=== PATIENT | female | born 1980 | race Caucasian/White ===

== ENCOUNTER → 2016-03-01 | Outpatient (CLI) | payer OTHER ==
[2016-03-01 12:59] LABS: MEAN CORPUSCULAR HEMOGLOBIN 31.2 pg (27.0-33.0); MEAN CORPUSCULAR HGB CONC 33.9 g/dl (32.0-36.5); MEAN CORPUSCULAR VOLUME 92.3 fl (80.0-96.0); RED CELL DISTRIBUTION WIDTH 12.6 % (11.5-14.5); WHITE BLOOD COUNT 6.8 K/mm3 (4.0-10.0)
[2016-03-01 13:37] LABS: ALBUMIN/GLOBULIN RATIO 1.33 (1.00-1.93); ALKALINE PHOSPHATASE 60 U/L (45-117); ALT/SGPT 39 U/L (12-78); ANION GAP 7 MEQ/L (8-16); AST/SGOT 23 U/L (15-37); BILIRUBIN,TOTAL 0.4 MG/DL (0.2-1.0); BLOOD UREA NITROGEN 11 MG/DL (7-18); CALCIUM LEVEL 9.2 MG/DL (8.5-10.1); CARBON DIOXIDE LEVEL 27 MEQ/L (21-32); CHLORIDE LEVEL 105 MEQ/L (98-107); CHOLESTEROL LEVEL 207 MG/DL (<200); CREATININE FOR GFR 0.74 MG/DL (0.55-1.02); GLOMERULAR FILTRATION RATE > 60.0 (>60); GLUCOSE, FASTING 83 MG/DL (70-105); POTASSIUM SERUM 4.7 MEQ/L (3.5-5.1); SODIUM LEVEL 139 MEQ/L (136-145); TRIGLYCERIDES LEVEL 302 MG/DL (<150)
[2016-03-01 15:15] LABS: CORTISOL AM 10.8 UG/DL (4.3-22.4)
== END ==
LOC: M WUC 09:00
PROVIDERS: ATTEND Nurse Practitioner Family
DX: K58.0 Irritable bowel syndrome with diarrhea (principal); E03.9 Hypothyroidism, unspecified; E78.00 Pure hypercholesterolemia, unspecified

== ENCOUNTER → 2016-04-25 | Outpatient (REF) | payer OTHER | LOC: M LAB REF 13:26 | PROVIDERS: ATTEND Advanced Practice Midwife | DX: Z12.4 Encounter for screening for malignant neoplasm of cervix (principal); R87.610 Atypical squamous cells of undetermined significance on cytologic smear of cervix (ASC-US) ==

== ENCOUNTER → 2016-06-12 | Outpatient (CLI) | payer OTHER ==
[2016-06-12 13:35] LABS: ALBUMIN 3.9 GM/DL (3.2-5.2); ALBUMIN/GLOBULIN RATIO 1.18 (1.00-1.93); BILIRUBIN,DIRECT 0.1 MG/DL (0.0-0.2); BILIRUBIN,TOTAL 0.4 MG/DL (0.2-1.0); TOTAL PROTEIN 7.2 GM/DL (6.4-8.2)
== END ==
LOC: M WUC 09:38
PROVIDERS: ATTEND Nurse Practitioner Family
DX: E78.00 Pure hypercholesterolemia, unspecified (principal)

== ENCOUNTER → 2016-10-30 | Outpatient (CLI) | payer OTHER ==
[2016-10-30 10:09] LABS: MEAN CORPUSCULAR HEMOGLOBIN 31.8 pg (27.0-33.0); MEAN CORPUSCULAR HGB CONC 34.5 g/dl (32.0-36.5); MEAN CORPUSCULAR VOLUME 92.2 fl (80.0-96.0); RED CELL DISTRIBUTION WIDTH 12.5 % (11.5-14.5); WHITE BLOOD COUNT 6.3 K/mm3 (4.0-10.0)
[2016-11-03 00:07] LABS: RENIN LEVEL 0.983 ng/mL/hr (0.167-5.380)
== END ==
LOC: M WUC 08:56
PROVIDERS: ATTEND Nurse Practitioner Family
DX: E03.9 Hypothyroidism, unspecified (principal); R53.83 Other fatigue; E78.00 Pure hypercholesterolemia, unspecified

== ENCOUNTER → 2016-12-13 | Outpatient (REF) | payer OTHER | LOC: M LAB REF 13:16 | PROVIDERS: ATTEND Advanced Practice Midwife | DX: B37.3 Candidiasis of vulva and vagina (principal) ==

== ENCOUNTER → 2017-09-02 | Outpatient (CLI) | payer OTHER ==
[2017-09-02 13:10] LABS: HEMATOCRIT 43.3 % (36.0-47.0); MEAN CORPUSCULAR HEMOGLOBIN 30.8 pg (27.0-33.0); MEAN CORPUSCULAR HGB CONC 34.6 g/dl (32.0-36.5); MEAN CORPUSCULAR VOLUME 88.9 fl (80.0-96.0); PLATELET COUNT, AUTOMATED 284 10^3/uL (150-450); RED BLOOD COUNT 4.87 10^6/uL (4.00-5.40); RED CELL DISTRIBUTION WIDTH 12.4 % (11.5-14.5)
[2017-09-02 13:39] LABS: ALBUMIN 3.9 GM/DL (3.2-5.2); ALBUMIN/GLOBULIN RATIO 1.18 (1.00-1.93); ALKALINE PHOSPHATASE 63 U/L (45-117); ALT/SGPT 69 U/L (12-78); ANION GAP 7 MEQ/L (8-16); AST/SGOT 42 U/L (7-37); BILIRUBIN,TOTAL 0.9 MG/DL (0.2-1.0); BLOOD UREA NITROGEN 6 MG/DL (7-18); CALCIUM LEVEL 8.9 MG/DL (8.5-10.1); CARBON DIOXIDE LEVEL 26 MEQ/L (21-32); CHLORIDE LEVEL 104 MEQ/L (98-107); CHOLESTEROL LEVEL 201 MG/DL (<200); CHOLESTEROL RISK RATIO 2.337 (<5); GLOMERULAR FILTRATION RATE > 60.0 (>60); GLUCOSE, FASTING 78 MG/DL (70-100); HDL CHOLESTEROL 86 MG/DL (>40); LDL CHOLESTEROL 88.8 MG/DL (<100); NON-HDL-C 115 MG/DL; POTASSIUM SERUM 4.4 MEQ/L (3.5-5.1); SODIUM LEVEL 137 MEQ/L (136-145); THYROID STIMULATING HORMONE 0.794 uIU/ML (0.358-3.740); TOTAL PROTEIN 7.2 GM/DL (6.4-8.2); TRIGLYCERIDES LEVEL 131 MG/DL (<150)
[2017-09-02 15:02] LABS: TOTAL 25(OH) VITAMIN D 45.4 NG/ML (30.0-100.0)
== END ==
LOC: M WUC 11:30
DX: K21.9 Gastro-esophageal reflux disease without esophagitis (principal); E78.00 Pure hypercholesterolemia, unspecified; E03.9 Hypothyroidism, unspecified; E55.9 Vitamin D deficiency, unspecified
CPT/HCPCS: 84443

== ENCOUNTER → 2017-10-10 | Outpatient (REF) | payer OTHER, MEDICAID ==
[2017-10-12 14:50] LABS: HPV HYBRID CAPTURE II Negative (Negative)
== END ==
LOC: M LAB REF 14:51
DX: Z12.4 Encounter for screening for malignant neoplasm of cervix (principal)

== ENCOUNTER → 2017-11-11 | Outpatient (REF) | payer OTHER, MEDICAID | LOC: M LAB REF 13:49 | DX: R87.612 Low grade squamous intraepithelial lesion on cytologic smear of cervix (LGSIL) (principal) ==

== ENCOUNTER → 2018-04-15 | Outpatient (CLI) | payer OTHER, MEDICAID ==
[2018-04-15 10:55] LABS: HCG, SERUM QUALITATIVE NEGATIVE (NEGATIVE)
[2018-04-15 11:15] LABS: FREE T4 1.12 NG/DL (0.76-1.46)
== END ==
LOC: M SMT 08:28
PROVIDERS: ATTEND Advanced Practice Midwife
DX: N92.6 Irregular menstruation, unspecified (principal)

== ENCOUNTER 2018-06-16 06:57 | Day surgery (SDC) | payer OTHER ==
[2018-06-16] VITALS (9 sets, daily range): BP systolic 103–134; BP diastolic 64–94
[~2018-06-16] VITALS: Ht 162.6 cm; Wt 68.7 kg
[~2018-06-16 06:57] MED LIST: LEVO112T2 PO; LR 1,000 ML IV ONE; VITA1CAP25 PO
[2018-06-16 07:27] LABS: HEMATOCRIT 46.5 % (36.0-47.0); HEMOGLOBIN 15.7 g/dl (12.0-15.5); MEAN CORPUSCULAR HEMOGLOBIN 30.3 pg (27.0-33.0); MEAN CORPUSCULAR HGB CONC 33.8 g/dl (32.0-36.5); MEAN CORPUSCULAR VOLUME 89.8 fl (80.0-96.0); PLATELET COUNT, AUTOMATED 278 10^3/uL (150-450); RED BLOOD COUNT 5.18 10^6/uL (4.00-5.40)
[2018-06-16] MEDS ORDERED: ROCURONIUM BROMIDE 50 MG/5 ML VIAL As Ordered ONE (07:35)
[2018-06-16] MEDS ORDERED: dexameTHASONE 4 MG/ML 1ML VIAL (J1100) As Ordered ONE (07:35)
[2018-06-16] MEDS ORDERED: ONDANSETRON 4MG/2ML VIAL (J2405) As Ordered ONE ×2 (07:35→07:36)
[2018-06-16] MEDS ORDERED: PROPOFOL 200 MG/20 ML VIAL As Ordered ONE ×2 (07:35→10:21)
[2018-06-16] MEDS ORDERED: LIDOCAINE 2% INJ 100 MG/5 ML SDV (FOR ANES.) As Ordered ONE (07:35)
[2018-06-16] MEDS ORDERED: KETOROLAC 60 MG/2 ML VIAL (J1885) As Ordered ONE (07:36)
[2018-06-16] MEDS ORDERED: ACETAMINOPHEN 1000MG 100ML IV BTL (OFIRMEV) (J0131 PER 10MG) As Ordered ONE (07:36)
[2018-06-16] MEDS ORDERED: METOCLOPRAMIDE INJ 10MG/2ML VIAL (J2765) As Ordered ONE (07:37)
[2018-06-16] MEDS ORDERED: HYDROmorphone HCL 2 MG/ML 1ML VIAL (J1170) As Ordered ONE (07:41)
[2018-06-16] MEDS ORDERED: MIDAZOLAM INJ 2 MG/2 ML VIAL (J2250) As Ordered ONE (07:41)
[2018-06-16] MEDS ORDERED: fentaNYL 100 MCG/2 ML INJECTION (J3010) As Ordered ONE ×2 (07:41→10:34)
[2018-06-16 07:56] LABS: HCG, SERUM QUALITATIVE NEGATIVE (NEGATIVE)
[2018-06-16] MEDS ORDERED: OXYC1TAB23 PO (08:05)
[2018-06-16] MEDS ORDERED: METHYLENE BLUE 0.5% (5MG/ML) 10 ML AMP (PROVAYBLUE)(Q9968 PER 1MG) As Ordered ONE (08:10)
[2018-06-16] MEDS ORDERED: BUPIVACAINE HCL 0.25% 10 ML VIAL As Ordered ONE (08:10)
[2018-06-16] MEDS ORDERED: ceFAZolin 2 GM/D5W 50 ML IV BAG (J0690 PER 500MG) As Ordered ONE (08:56)
[2018-06-16] MEDS ORDERED: GLYCOPYRROLATE INJ 0.2 MG/ML 2 ML VIAL As Ordered ONE (09:10)
[2018-06-16] MEDS ORDERED: ePHEDrine SULFATE 25 MG/5 ML(5MG/ML) SYRINGE As Ordered ONE (09:46)
[2018-06-16] MEDS ORDERED: SUGAMMADEX SODIUM 500 MG/5 ML VIAL (BRIDION) As Ordered ONE (10:43)
[2018-06-16] MEDS ORDERED: ONDANSETRON 4MG/2ML VIAL (J2405) IV PRN (11:30)
[2018-06-16] MEDS ORDERED: METOCLOPRAMIDE INJ 10MG/2ML VIAL (J2765) IV PRN (11:30)
[2018-06-16] MEDS ORDERED: LR 1,000 ML IV SCH (11:30)
[2018-06-16] MEDS ORDERED: fentaNYL 100 MCG/2 ML INJECTION (J3010) IV PRN (11:30)
[2018-06-16 11:39] LABS: BLOOD UREA NITROGEN 9 MG/DL (7-18); CALCIUM LEVEL 8.8 MG/DL (8.5-10.1); CARBON DIOXIDE LEVEL 23 MEQ/L (21-32); CHLORIDE LEVEL 104 MEQ/L (98-107); CREATININE FOR GFR 0.81 MG/DL (0.55-1.30); GLOMERULAR FILTRATION RATE > 60.0 (>60); GLUCOSE, FASTING 82 MG/DL (70-100); POTASSIUM SERUM 4.3 MEQ/L (3.5-5.1); SODIUM LEVEL 137 MEQ/L (136-145)
[2018-06-16] MEDS: PERCOCET 5MG/325MG TAB PO PRN ×4 (11:47→23:03)
[2018-06-16] MEDS: KETOROLAC 30 MG/ML VIAL (J1885) IV PRN (17:21)
[2018-06-17] VITALS: BP 111/70
[2018-06-17] MEDS: PERCOCET 5MG/325MG TAB PO PRN ×2 (03:03→07:45)
[2018-06-17 04:00] VITALS: BP 122/64
[2018-06-17] MEDS ORDERED: LEVOTHYROXINE 112MCG TABLET (0.112MG) PO SCH (06:00)
[2018-06-17 08:00] VITALS: BP 116/73
[2018-06-17] MEDS: KETOROLAC 30 MG/ML VIAL (J1885) IV PRN (08:41)
--- NOTE | 2018-06-18 08:27 | RO ---
DATE OF OPERATION: 06/16/2018 PREOPERATIVE DIAGNOSES: 1. Fibroid uterus. 2. Abnormal uterine bleeding. POSTOPERATIVE DIAGNOSES: 1. Fibroid uterus. 2. Abnormal uterine bleeding. PROCEDURES PERFORMED: 1. Robotic-assisted laparoscopic hysterectomy. 2. Bilateral salpingectomy. 3. Myomectomy. 4. Cystoscopy. SURGEON: Marleen Hall MD INTERNAL CARVER: ROXIE Hinton ANESTHESIA: General tracheal anesthesia. ESTIMATED BLOOD LOSS: 100 mL. INTRAVENOUS FLUIDS: 1700 mL or Lactated Ringer's. URINE OUTPUT: 75 mL. PREOPERATIVE ANTIBIOTICS: 2 grams of Ancef. SPECIMENS: Large fibroid uterus, cervix with bilateral fallopian tubes. OPERATIVE FINDINGS: Enlarged fibroid uterus. DESCRIPTION OF OPERATION: After informed consent was obtained and written consent was reviewed, the patient was brought to the operating room where she was placed under general endotracheal anesthesia. She was then placed in lithotomy position, was prepped and draped in a normal sterile fashion. A time out in the operating room was then performed identifying the patient, procedure to be performed, as well as drug allergies. Speculum was then placed revealing the cervix. The anterior and posterior aspects of the cervix was stitched with #0 Vicryl. The uterus was then sounded to 12 cm. An extra large VCare uterine manipulator was then advanced through the cervical os and 7 mL of air was insufflated into the intrauterine balloon. A cervical cap was placed over the cervix as well as a vaginal sleeve, advanced into the vagina. A Prieto catheter was then placed and set to gravity. Gloves were changed and attention was turned to the patient's abdomen. A Veress needle was then placed through the umbilicus and pneumoperitoneum was then obtained with CO2 gas. The supraumbilical area was infused 0.25% Marcaine. An incision was made in this area and an 8 mm trocar and sleeve was advanced through this incision. The laparoscope was then replaced revealing intra-abdominal placement. The Veress needle was removed and the abdomen was then surveyed with the above noted findings. Three additional ports were placed, one to the patient's right side parallel to the umbilicus and two additional ports off to the left side. Each one of these areas was infused with 0.25% Marcaine. Incision was made in each one of these areas and an 8 mm trocar and sleeve was advanced through each one of these incisions under direct visualization. Next, the da Alessandra was docked utilizing three operative arms. Next, using the vessel sealer the mesosalpinx bilaterally were dissected down to the level of the uterus. The utero-ovarian ligaments bilaterally were then cauterized and ligated with good hemostasis noted. The round ligaments bilaterally were cauterized and ligated. There was a large left broad ligament fibroid noted. The left broad ligament on the left side was at the anterior and posterior leaves. This was further dissected along the bladder. This was also repeated on the patient's right side. The remainder of the broad and cardinal ligaments were then cauterized and ligated with good hemostasis noted. The uterine vessels were skeletonized and was cauterized and ligated with good hemostasis noted. Next, using Endo Shear and monopolar cautery, anterior and posterior colpotomies were made. I was unable to deliver the specimen through the vaginal incision at which time I performed a myomectomy removing a large 8 mm fibroid intra-abdominally. Both specimens were then delivered through the vaginal incision. Good hemostasis was noted. The vaginal cuff was then closed using #0 V-Loc suture in a running fashion. The abdomen was then irrigated and suctioned. Ryan was applied over the surgical field. Hemostasis was then achieved. The pneumoperitoneum was then released and a cystoscopy was performed using a 70 degree scope. The Prieto catheter was then removed. The 70 degree cystoscope was advanced transurethrally and the bladder was inspected showing normal bladder mucosa, bilateral ureter jets were observed. The cystoscope was then removed and the bladder was then drained. Attention was then turned to the patient's abdomen where all four port sites were closed with #4-0 Monocryl and was dressed with Dermabond. The patient was then taken out of lithotomy position, was awakened general anesthesia and taken to recovery in stable condition. Counts correct. Ethel Palacios, my certified surgical technician, played an essential role during the surgery. She assisted with port placement, docking the robot as well as tissue retraction, identification and removal of specimen.
== END 2018-06-17 09:40 | disposition home or self-care (01) ==
LOC: M SDC 06:57 → M PED 13:10 → M SDC 06-17 09:40
PROVIDERS: ATTEND Obstetrics & Gynecology
DX: N93.9 Abnormal uterine and vaginal bleeding, unspecified (principal); D25.1 Intramural leiomyoma of uterus; D25.2 Subserosal leiomyoma of uterus; E03.9 Hypothyroidism, unspecified; K58.9 Irritable bowel syndrome, unspecified; Z79.899 Other long term (current) drug therapy
CPT/HCPCS: 36415; 58572; 80048; 84703; 85027; 86850; 86900; 86901; 88309; 96374; 96375; J0131; J0690; J1100; J1170; J1885; J2250; J2405; J2765; J3010; Q9968

== ENCOUNTER → 2018-10-30 | Outpatient (REF) | payer BC ==
[~2018-10-30] MED LIST changes: -LR 1,000 ML IV ONE; +OXYC1TAB23 PO
[2018-10-30 18:06] LABS: RHEUMATOID FACTOR QUANT < 10.0 IU/ML (<15.0); THYROID STIMULATING HORMONE 0.509 uIU/ML (0.358-3.740)
[2018-10-30 18:10] LABS: TOTAL 25(OH) VITAMIN D 34.3 NG/ML (30.0-100.0)
[2018-10-30 18:27] LABS: VITAMIN B12 LEVEL 479 PG/ML (247-911)
[2018-11-02 00:06] LABS: ANA (HEP2) Negative (.); Lyme Disease IgG/IgM Antibodie <0.91 ISR (0.00-0.90); Lyme Disease IgM Ab Quantitati <0.80 index (0.00-0.79)
== END ==
LOC: M SFHCCLAY 10:52
PROVIDERS: ATTEND Nurse Practitioner Family
DX: E03.9 Hypothyroidism, unspecified (principal); R20.2 Paresthesia of skin